=== PATIENT | male | born 1990 | race Caucasian/White ===

== ENCOUNTER 2020-01-14 13:04 | Emergency (ER) | payer BC ==
--- NOTE | 2020-01-14 13:12 | TELE ---
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 Denies any symptoms. *Physical Exam - Physical Exam 01/14/20 13:11 Differed 06/13 video chat not being available - Medical Decision Making 01/14/20 13:11 Pt to precede to [place] Location for testing Discharge Diagnosis at time of Disposition: COVID-19 - Referrals Follow-up Referral(s): Amari Bartlett MD [Primary Care Provider] - - Patient Instructions Discharge Instructions: [facility]-Coronavirus Instructions - Discharge Disposition: HOME Condition at time of Disposition: Stable
== END 2020-01-14 13:12 | disposition home or self-care (01) ==
LOC: JVIRT 13:04
DX: Z11.59 Encounter for screening for other viral diseases (principal)
CPT/HCPCS: Q3014-GT; U0003

== ENCOUNTER 2020-01-17 23:08 | Emergency (ER) | payer BC, OTHER ==
[2020-01-17 23:14] VITALS: TEMP 98.3; BMI 26.6
--- NOTE | 2020-01-17 23:23 | PDOC ---
Post Exposure HPI - General Chief Complaint: Blood/Body Fluid Exposure [facility] Stated Complaint: NEEDLE STICK Time Seen by Provider: 01/17/20 23:22 History Source: Patient - History of Present Illness Initial Comments: 01/17/20 23:22 30 year old male [facility] resident s/p needle stick to gloved right hand. patient immediately washed with soap and water. no bleeding noted. patient felt a poke. vaccines up to date 01/17/20 23:25 Past History - Medical History Allergies/Adverse Reactions: Allergies Allergy/AdvReac Type Severity Reaction Status Date / Time pollen extracts Allergy Verified 01/17/20 23:13 - Psycho-Social/Smoking History Smoking History: Never smoked Information on smoking cessation initiated: No - Substance Abuse Hx (Audit-C & DAST Scrn) How often the patient has a drink containing alcohol: Never Score: In Men: 4 or > Positive; In Women: 3 or > Positive: 0 Screen Result (Pos requires Nsg. Audit-10AR): Negative In the last yr the pt used illegal drug/Rx for NonMed reason: No Score: Yes response is considered Positive: 0 Screen Result (Positive result requires Nsg. DAST-10): Negative *Physical Exam - Vital Signs Last Vital Signs Temp Pulse Resp BP Pulse Ox 98.3 F 00/00 L 01/17/20 23:11 01/17/20 23:11 - Physical Exam General Appearance: Yes: Appropriately Dressed Extremity: positive: Other (needlestick pin point obi to right dorsal side of hand ) Integumentary: positive: Dry, Warm Post Exposure - ED Protocol - Exposure Treatment Washing/Decontamination: Soap/Water Source Patient HIV Status:: Unknown Is PEP indicated?: No Prophylaxis for HIV discussed?: No Prophylaxis given?: No Prophylaxis refused?: No Drug(s) Information Sheets given:: No Baseline bloods drawn prophylaxis:(use *Exposure-Hosp Emp): No - Referrals Employee Referred to Employee Health:: Yes ED Progress Note - Progress Note Progress Note: 01/17/20 23:29 A: needle stick injury: P: source patient consented for blood work wound is cleaned Tetanus is up to date. Source patient info: TALITA PEREZ [birth year] [id number] 01/17/20 23:30 Discharge - Discharge Information Problems reviewed: Yes Clinical Impression/Diagnosis: Needle stick injury Disposition: HOME - Follow up/Referral - Patient Discharge Instructions Patient Printed Discharge Instructions: How to Handle Body Fluid Exposure -- Healthcare Worker - Post Discharge Activity Work/Back to School Note: Back to Work
[2020-01-17 23:50] VITALS: BP 122/72; PULSE 64
== END 2020-01-17 23:50 | disposition home or self-care (01) ==
LOC: JER 23:08
DX: Z77.21 Contact with and (suspected) exposure to potentially hazardous body fluids (principal)
CPT/HCPCS: 99281-25